=== PATIENT | male | born 1975 | race Caucasian/White ===

== ENCOUNTER 2020-04-18 12:37 | Emergency (ER) | payer BC, SELFPAY ==
--- NOTE | 2020-04-18 12:32 | ECG_ITS ---
APPROVED REPORT Exam: Resting ECG HR:61 bpm ECG Measurements Heart Rate 61 AXES WI 164 P 31 QRSd 84 QRS 29 QT 428 T 13 QTc 430 <Conclusion> Normal sinus rhythm Normal ECG Electronically signed by : Shivam Balderrama, 04/20/2020 06:44:34
[2020-04-18 12:39] VITALS: BP 118/81; PULSE 61; RESP 18; TEMP 36.6; O2SAT 96; BMI 32.5
--- NOTE | 2020-04-18 12:43 | XR_ITS ---
PROCEDURE: XR CHEST 2V CLINICAL HISTORY: chest pain, chest pain and shortness of air COMPARISON: CXR CHEST(2 VIEWS-NOT PORTABLE) from 11/26/2013 CXR CHEST(2 VIEWS-NOT PORTABLE) from 02/12/2014 XR CHEST 2V from 12/23/2019 FINDINGS: The cardiomediastinal silhouette and pulmonary vascularity are within normal limits. The lungs are clear without infiltrates, suspicious nodules, or pleural effusions. No acute bony abnormalities. IMPRESSION: No acute findings. Dictated by: Paul Whitaker MD 04/18/2020 14:16 Electronically signed by Paul Whitaker MD in [place] 04/18/2020 14:16
[2020-04-18 12:52] LABS: Basophils # 0.1 K/mm3 (0-0.2); Basophils % 0.9 % (0.1-2.0); Eosinophils # 0.3 K/mm3 (0.0-0.4); Eosinophils % 2.7 % (0.1-12.0); Hematocrit 47.8 % (42.0-52.0); Hemoglobin 16.8 g/dL (14.1-18.0); Lymphocytes # 2.7 K/mm3 (0.7-4.5); Lymphocytes % 28.8 % (10-50); Mean Corpuscular HGB Conc 35.2 g/dL (31.8-35.4); Mean Corpuscular Hemoglobin 30.4 pg (27.0-31.2); Mean Corpuscular Volume 86.5 fl (80-94); Mean Platelet Volume 7.8 fl (7.4-10.4); Monocytes # 0.4 K/mm3 (0.1-1.0); Monocytes % 4.7 % (1.7-9.3); Neutrophils # 5.8 K/mm3 (1.8-7.8); Neutrophils % 62.9 % (37.0-80.0); Platelet Count 297 K/mm3 (142-424); Red Blood Count 5.53 M/mm3 (4.60-6.20); Red Cell Distribution Width 13.5 % (11.5-17.5); White Blood Count 9.3 K/mm3 (4.8-10.8)
[2020-04-18 12:56] LABS: Chloride 100 mmol/L (98-107); Sodium 138 mmol/L (136-145)
[2020-04-18 12:59] LABS: Blood Urea Nitrogen 14 mg/dl (9-20); Calcium 9.8 mg/dl (8.4-10.2); Carbon Dioxide 29 mmol/L (22.0-30.0); Creatinine Clearance Estimated 148 mL/min (50-200); Estimated Glomerular Filt Rate 92 ml/min (>60); GFR (African American) 111 ML/MIN (>60); Glucose 130 mg/dl (74-100)
[2020-04-18 13:07] VITALS: BP 114/81; PULSE 64; RESP 20; O2SAT 99
[2020-04-18 13:12] LABS: Troponin I < 0.01 ng/ml (0.00-0.034)
[2020-04-18 13:30] VITALS: BP 120/82; PULSE 62; RESP 20; O2SAT 94
--- NOTE | 2020-04-18 13:31 | HMH.EDGENADL ---
ED Disposition Clinical Impression: Atypical chest pain Disposition: Home, Self-Care Condition on Discharge: Good Instructions: DI for Atypical Chest Pain Additional Instructions: You have been evaluated for chest pain. Please follow-up with cardiology, Dr. Salas and Jluis Soto tomorrow in clinic at 11:30 AM. Return to the emergency department if you have any new or worsening symptoms or pain tonight. Referrals: Sha Colon [Primary Care Provider] - Richi Salas MD [Staff Physician] - Time of Disposition: 16:02 - Critical Care Critical Care Time: No Attestation: On 04/18/20, the high probability of a clinically significant, sudden or life threatening deterioration of the following system(s) required my full and direct attention, intervention and personal management. The time I documented below is in addition to time spent performing reported procedures but includes the following listed in this critical care notation. Medical Decision Making - Medical Records Medical records reviewed: Yes: I reviewed the patient's medical records. - Abdelrahman Inquiry Pt receiving controlled substance: No Vital Signs: 04/18/20 12:39 04/18/20 13:07 04/18/20 13:30 Temperature 97.9 F Temperature Source Oral Pulse Rate [Radial] 61 64 62 Respiratory Rate 18 20 20 Blood Pressure [Right Arm] 118/81 114/81 120/82 Blood Pressure Mean [Right Arm] 93 92 94 Blood Pressure Source [Right Arm] Automatic Cuff Automatic Cuff Automatic Cuff Blood Pressure Position [Right Arm] Sitting Sitting Sitting 02 Sat by Pulse Oximetry 96 99 94 L Oxygen Delivery Method Room Air Room Air Room Air 04/18/20 14:00 04/18/20 14:30 Temperature Temperature Source Pulse Rate [Radial] 62 66 Respiratory Rate 17 20 Blood Pressure [Right Arm] 125/76 119/79 Blood Pressure Mean [Right Arm] 92 92 Blood Pressure Source [Right Arm] Automatic Cuff Blood Pressure Position [Right Arm] Sitting 02 Sat by Pulse Oximetry 92 L 96 Oxygen Delivery Method Room Air Room Air - Lab Data Lab Results 04/18/20 12:40: WBC 9.3, RBC 5.53, Hgb 16.8, Hct 47.8, MCV 86.5, MCH 30.4, MCHC 35.2, RDW 13.5, Plt Count 297, MPV 7.8, Neut % (Auto) 62.9, Lymph % (Auto) 28.8, Frontier % (Auto) 4.7, Eos % (Auto) 2.7, Baso % (Auto) 0.9, Neut # (Auto) 5.8, Lymph # (Auto) 2.7, Frontier # (Auto) 0.4, Eos # (Auto) 0.3, Baso # (Auto) 0.1 04/18/20 12:40: Sodium 138, Potassium 4.0, Chloride 100, Carbon Dioxide 29, Anion Gap 13.0, BUN 14, Creatinine 0.90, Estimated Creat Clear 148, Estimated GFR 92, Est GFR ( Amer) 111, Glucose 130 H, Calcium 9.8, Troponin I < 0.01 Result diagrams: 04/18/20 12:40 04/18/20 12:40 Orders (Tests/Meds): ED MEDICATIONS Discontinued Medications Generic Name Dose Route Start Last Admin Trade Name Freq PRN Reason Stop Dose Admin Aspirin 324 mg 04/18/20 12:52 04/18/20 12:52 Aspirin 81mg Chewable Tablet PO 04/18/20 12:53 324 mg ONCE ONE Administration ORDERS Category Date Time Status Troponin I Q3H Lab 04/18/20 15:45 Ordered Troponin I Q3H Lab 04/18/20 18:45 Ordered - ECG Data Tracing #1 Sinus rhythm with ventricular rate of 61 bpm. QRS 84, QTc 430. No significant ST segment elevation. No arrhythmia. - BARBARA Score for Non-Stemi Age of Patient: 40-49 years old Heart Rate: 50-69 bpm Systolic Blood Pressure: 100-119 mmHg Serum Creatinine: 0.40-0.79 mg/dl CHF Killip Class: I-No CHF Other Risk Factors: None Non-Stemi Risk Score: 75 Medical Decision Narrative: In summary this is a 44-year-old male presenting to the emergency department with episodes of chest pain. Patient is overall well-appearing on arrival. He is not having chest pain at this time. Vital signs are stable. Patient given 325 chewable aspirin. Differential diagnoses include acute coronary syndrome, myocarditis, costochondritis, pericarditis, pneumonia. Plan to obtain CBC, CMP, chest x-ray, EKG, troponin profile and reassess. Initial EKG
[2020-04-18 14:00] VITALS: BP 125/76; PULSE 62; RESP 17; O2SAT 92
[2020-04-18 14:30] VITALS: BP 119/79; PULSE 66; RESP 20; O2SAT 96
[2020-04-18 17:04] LABS: Troponin I < 0.01 ng/ml (0.00-0.034)
[2020-04-18 17:15] VITALS: BP 119/79; PULSE 66; RESP 20; TEMP 36.7; O2SAT 96
== END 2020-04-18 17:17 | disposition home or self-care (01) ==
PROVIDERS: Emergency Provider Emergency Medicine; PCP Orthopaedic Surgery
DX: R07.89 Other chest pain (principal); I10 Essential (primary) hypertension; E78.5 Hyperlipidemia, unspecified; Z88.0 Allergy status to penicillin; Z79.899 Other long term (current) drug therapy; F17.290 Nicotine dependence, other tobacco product, uncomplicated
CPT/HCPCS: 71046; 80048; 84484; 85025; 93005; 99284

== ENCOUNTER → 2020-04-28 06:03 | Outpatient (CLI) | payer BC, SELFPAY ==
--- NOTE | 2020-04-28 | CA_ITS ---
APPROVED REPORT Exam: Exercise Treadmill Technologist: Mayela Benton, Ht: 5 ft 9 in Wt: 225 lbs BSA: 2.17 m2 HR: 55 bpm BP: 131/85 mmHg Rhythm: SINUS BRADYCARDIA,RAD,ST-T ABNORMALITIES IN LEAD III AND aVF Medical History Medical History: HTN, Hyperlipidemia, Diabetic ??? Noninsulin Medications: Amlodipine,,,,, Omeprazole,,,,, Spiriva,,,,, Propranolol,,,,, Allopurinol,,,,, Escitalopram,,,,, Levocetrizine,,,,, Cardiac Risk Factors: HTN, Hyperlipidemia, Diabetes (non-insulin), FHX of CAD Stress Test Details Test: Jose Angel HR Resting HR: 57 bpm Max Heart Rate (APMHR): 176 bpm Max HR Achieved: 130 bpm Target HR (85% APMHR): 149 bpm % of APMHR: 73 Recovery HR: 88 bpm BP Resting BP: 131.0/85.0 mmHg Max BP: 150.0/82.0 mmHg Recovery BP: 130.0/70.0 mmHg ECG Resting ECG: SINUS BRADYCARDIA,RAD,ST-T ABNS IN LEADS III aVF Clinical Exercise duration: 10:16 min Highest Stage Achieved: Exercise capacity: 12.8 METs Stress ECG Conclusion EXERCISED 10:15 ON JOSE ANGEL PROTOCOL WITH MAX HEART RATE 130 BPM WHICH IS 74% OF PM FOR AGE. MAX BP 156/80. METS = 12.8. TEST STOPPED DUE TO SOA AND FATIGUE. MILD CHEST PRESSURE WITH EXERCISE. RARE PVC. ALLOWING FOR MOTION ARTIFACT AND BASELINE ABNORMALITIES IN LEADS III AND aVF,THE ST RESPONSE TO EXERCISE IS WITHIN NORMAL. NORMAL EKG'S TO HEART RATE ACHIEVED(74% OF PM). BLUNTED HEART RATE RESPONSE ON BETA QUINTEN. MILD CHEST PAIN WITH EXERCISE. MYOVIEW IMAGES REPORTED SEPARATELY. Test Summary RECOVERY 05:29 0.0 0.0 67 . 119/ 73 . . REST . . . . . . . Sitting REST 03:46 0.0 0.0 57 . 131/ 85 . . Stage 1 01:00 10.0 1.7 71 . . . . Stage 1 02:00 10.0 1.7 77 . . . . Stage 1 03:00 10.0 1.7 78 . 134/ 80 . . Stage 2 01:00 12.0 2.5 84 . . . . Stage 2 02:00 12.0 2.5 84 . . . . Stage 2 03:00 12.0 2.5 85 . 150/ 82 . . Stage 3 01:00 14.0 3.4 95 . . . . Stage 3 02:00 14.0 3.4 102 . . . . Stage 3 . . . . . . . Cardiolite injected Stage 3 03:00 14.0 3.4 104 . . . . Stage 4 01:00 16.0 4.2 121 . . . . Stage 4 01:16 16.0 4.2 127 . . . Stop exercise at 10:16 RECOVERY 01:00 0.0 0.0 90 . . . . RECOVERY 02:00 0.0 0.0 80 . 130/ 70 . . RECOVERY 03:00 0.0 0.0 72 . 137/ 78 . . RECOVERY 04:00 0.0 0.0 69 . 136/ 76 . . RECOVERY 05:00 0.0 0.0 66 . 136/ 76 . . RECOVERY 05:29 0.0 0.0 67 . 119/ 73 . . Electronically signed by : John Bowman, 04/28/2020 14:20:45
--- NOTE | 2020-04-28 06:06 | CA_ITS ---
APPROVED REPORT EXAM: Comprehensive 2D, Doppler, and color-flow Echocardiogram Final Inspector: Mellissa Perez RDCS Ht: 5 ft 9 in Wt: 225lbs BSA: 2.17 BP: 121/79 mmHg Indications: CP,ABN EKG,HTN,HLP,RODRIGUEZ 2D Dimensions LVOT 2.00 cm (M/F) 1.5-2.5 M-Mode Dimensions RVDd 2.88 cm (0.9-2.6) LVDd 5.13 cm (3.5-5.7) LVDs 3.90 cm (3.5-5.7) IVSd 0.85 cm (0.6-1.1) PWd 0.89 cm (0.6-1.1) EF (Teich) 47.50% FS 24.00% EDV (Teich) 125.50 mL ESV (Teich) 65.90 mL LV Diastology E/A Ratio 1.01 Mitral Valve MV A Velocity 60.00 (40-130 cm/s) Left Ventricle Left atrium is mildly enlarged, left ventricle is normal size, mild concentric left ventricular hypertrophy, visually estimated ejection fraction 55% with no regional wall motion abnormality, grade 1 diastolic dysfunction seen without tissue Doppler evidence of raise left atrial pressure. Right Ventricle Right atrium and right ventricular mildly enlarged with normal contractility. Aortic Valve Aortic valve is minimally thickened and fibrosed, there is no aortic stenosis or aortic insufficiency. Mitral Valve Mitral valve leaflets are minimally thickened, there is no mitral stenosis, there is mild mitral regurgitation. Tricuspid Valve Tricuspid valve is grossly normal, there is mild tricuspid regurgitation, tricuspid regurgitation jet velocity is inadequate for calculation of the right ventricular systolic pressure. Pulmonic Valve Pulmonic valve is poorly visualized. Great Vessels Aortic root is normal size. Pericardium Trivial pericardial effusion noted. Conclusion 1. Mild biatrial enlargement, normal left ventricular size, mild concentric left ventricular hypertrophy, visually estimated ejection fraction 55% with no regional wall motion abnormality, grade 1 diastolic dysfunction seen without tissue Doppler evidence of raise left atrial pressure. 2. Mildly enlarged right ventricle with normal contractility. 3. Mild mitral and tricuspid regurgitation. 4. Trivial pericardial effusion noted. Electronically signed by : John Bowman, 04/28/2020 15:21:48
--- NOTE | 2020-04-28 06:15 | NM_ITS ---
APPROVED REPORT Exam: Nuclear Stress Test Indication: chest pain..short of breath..fatigue Patient Location: Outpatient Stress Tech: Anhjannie Benton [place] Tech:VIRGIE Fernández RT(R)(N) Ht: 5 ft 9 in Wt: 225 lbs HR: 55 bpm BP: 131/85 mmHg BSA: 2.17 m2 BMI: 33.2 History: chest pain..short of breath..fatigue Procedure: Patient exercised on Jose Angel protocol 10.15 minutes and sec, resting heart rate 55 bpm, resting blood pressure 131/85 mmHg, with exercise maximum heart rate achived was 130 bpm which is 74 % of the maximum predicted heart rate and blood pressure was 150/80 mmHg. Patient denied any complaint of chest pain. Patient has good exercise capacity, achieved 12.8 METs of workload on treadmill, the blood pressure response to exercise was Adequate. Electrocardiogram Resting electrocardiogram showed sinus rhythm, with exercise there is less than 1.[address] segment depression noted from the baseline EKG. The EKG portion of the exercise Myoview is nondiagnostic as patient did not achieve the target heart rate. Cardiac Stress and Resting SPECT Images: Cardiac Stress and Resting SPECT images were obtained using technetium 99m Myoview 32.2 mCi stress and 10.71 mCi at rest. Gated SPECT for the analysis of segmental wall motion and calculation of the ejection fraction also done. Cardiac stress and resting SPECT images show uniform myocardial activity without segmental perfusion abnormality, computer derived ejection fraction is 61% with no regional wall motion abnormality, right ventricle is normal size and contractility. Conclusion: 1. The EKG portion of the exercise Myoview is nondiagnostic as patient did not achieve the target heart rate, patient has good exercise capacity achieved 12.8 mets of workload on treadmill, the blood pressure response to exercise was adequate. There was no exercise-induced chest discomfort. 2. No scintigraphic evidence of reversible ischemia seen at this level of exercise, computer derived ejection fraction is 61% with no regional wall motion abnormality, right ventricle is normal size and contractility. Electronically signed by : John Bowman, 04/28/2020 14:23:25
--- NOTE | 2020-04-28 09:47 | HMH.ITSHM ---
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 [] spiva xyzal breo allopurinol omprazole proprnolol amlodipine
== END ==
PROVIDERS: PCP Orthopaedic Surgery; Visit Provider Urology
DX: R06.00 Dyspnea, unspecified (principal); R07.9 Chest pain, unspecified; R94.31 Abnormal electrocardiogram [ECG] [EKG]; E78.5 Hyperlipidemia, unspecified; I10 Essential (primary) hypertension; R53.83 Other fatigue
CPT/HCPCS: 78452; 93017; 93306; A9502

== ENCOUNTER 2020-05-03 16:07 | Emergency (ER) | payer BC, SELFPAY ==
--- NOTE | 2020-05-03 16:12 | XR_ITS ---
PROCEDURE: XR CHEST 2V CLINICAL HISTORY: chest pain Left-sided chest pain COMPARISON: CR CXR CHEST(2 VIEWS-NOT PORTABLE) from 02/12/2014 CR XR CHEST 2V from 12/23/2019 CR XR CHEST 2V from 04/18/2020 FINDINGS: The cardiomediastinal silhouette and pulmonary vascularity are within normal limits. The lungs are clear without infiltrates, suspicious nodules, or pleural effusions. No acute bony abnormalities. IMPRESSION: No acute findings. Dictated by: Paul Whitaker MD 05/03/2020 16:54 Paul Whitaker MD in [place] 05/03/2020 16:54
--- NOTE | 2020-05-03 16:12 | ECG_ITS ---
APPROVED REPORT Exam: Resting ECG HR:63 bpm ECG Measurements Heart Rate 63 AXES WI 164 P 28 QRSd 90 QRS 8 QT 420 T 15 QTc 429 <Conclusion> Normal sinus rhythm Normal ECG Electronically signed by : Kyle Otero, 05/08/2020 13:08:57
--- NOTE | 2020-05-03 16:13 | HMH.EDCP ---
ED Disposition Clinical Impression: Chest pain Qualifiers: Chest pain type: unspecified Qualified Code(s): R07.9 - Chest pain, unspecified Disposition: Home, Self-Care Condition on Discharge: Good Instructions: DI for Atypical Chest Pain Referrals: Richi Salas MD [Staff Physician] - 05/04/20 - Critical Care Critical Care Time: No Attestation: On 05/03/20, the high probability of a clinically significant, sudden or life threatening deterioration of the following system(s) required my full and direct attention, intervention and personal management. The time I documented below is in addition to time spent performing reported procedures but includes the following listed in this critical care notation. Medical Decision Making - Medical Records Medical records reviewed: Yes: I reviewed the patient's medical records. - Abdelrahman Inquiry Pt receiving controlled substance: No Vital Signs: 05/03/20 16:15 Pulse Rate [Radial] 69 Respiratory Rate 16 Blood Pressure [Right Arm] 137/93 H Blood Pressure Mean [Right Arm] 107 Blood Pressure Source [Right Arm] Automatic Cuff Blood Pressure Position [Right Arm] Sitting 02 Sat by Pulse Oximetry 99 Oxygen Delivery Method Room Air - Lab Data Lab results reviewed: Yes: I reviewed the patient's lab results. Lab Results 05/03/20 16:10: WBC 8.1, RBC 5.59, Hgb 16.6, Hct 48.8, MCV 87.2, MCH 29.6, MCHC 33.9, RDW 13.5, Plt Count 300, MPV 7.8, Neut % (Auto) 59.0, Lymph % (Auto) 32.2, Harlan % (Auto) 5.3, Eos % (Auto) 2.3, Baso % (Auto) 1.2, Neut # (Auto) 4.8, Lymph # (Auto) 2.6, Harlan # (Auto) 0.4, Eos # (Auto) 0.2, Baso # (Auto) 0.1 05/03/20 16:10: Sodium 138, Potassium 4.0, Chloride 101, Carbon Dioxide 28, Anion Gap 13.0, BUN 10, Creatinine 0.90, Estimated Creat Clear 151, Estimated GFR 92, Est GFR ( Amer) 111, Glucose 142 H, Calcium 9.8, Total Bilirubin 1.1, AST 67 H, ALT 77, Alkaline Phosphatase 104, Troponin I < 0.01, Total Protein 7.3, Albumin 4.3, Globulin 3.0, Albumin/Globulin Ratio 1.4 Result diagrams: 05/03/20 16:10 05/03/20 16:10 Orders (Tests/Meds): ED MEDICATIONS Generic Name Dose Route Start Last Admin Trade Name Shady PRN Reason Stop Dose Admin Nitroglycerin 0.4 mg 05/03/20 16:12 Nitrostat 0.4mg Sl Tablet SL 05/04/20 16:12 Q5MINP PRN Chest Pain Discontinued Medications Generic Name Dose Route Start Last Admin Trade Name Fre[place]man PRN Reason Stop Dose Admin Aspirin 324 mg 05/03/20 16:12 Aspirin 81mg Chewable Tablet PO 05/03/20 16:13 ONCE ONE ORDERS Category Date Time Status XR chest 2V Stat Exams 05/03/20 16:12 Ordered Troponin I Q3H Lab 05/03/20 19:15 Ordered Troponin I Q3H Lab 05/03/20 22:15 Ordered ECG Request by /Ortiz Stat Y 05/03/20 16:12 Ordered - Radiology Data #1 Image(s): Chest Image Reviewed: Yes I reviewed the patient's radiology image Preliminary Findings: Normal/NAD - ECG Data Tracing #1 EKG shows a normal sinus rhythm with a rate of 63. No acute ST segment elevation or depression. No hyperacute T waves. QRS, QTc, IL within normal limits. EKG interpreted by me. Medical Decision Narrative: HEART score <3, low risk kathleen score and negative troponin yet again. He has now essentially been trending his troponins with intermittent chest pain since the beginning of the month and it remains negative, so I do not feel he needs a repeat at this time. Chest x-ray remains clear with no signs of pneumonia, pneumothorax, widened mediastinum that would suggest dissection or florid pulmonary edema. He has an EKG that shows no signs of acute ischemia and no significant interval abnormalities. He has follow-up with cardiology tomorrow. Discharged home. PERC negative. Chest Pain HPI - General Stated Complaint: Chest Pain Time Seen by Provider: 05/03/20 16:13 Mode of Arrival: Ambulatory Source of Information: Patient, Medical Record Limitations: No Limitations - History of Presen
[2020-05-03 16:15] VITALS: BP 137/93; PULSE 69; RESP 16; O2SAT 99; BMI 33.2
[2020-05-03 16:21] LABS: Basophils # 0.1 K/mm3 (0-0.2); Basophils % 1.2 % (0.1-2.0); Eosinophils # 0.2 K/mm3 (0.0-0.4); Eosinophils % 2.3 % (0.1-12.0); Hematocrit 48.8 % (42.0-52.0); Hemoglobin 16.6 g/dL (14.1-18.0); Lymphocytes # 2.6 K/mm3 (0.7-4.5); Lymphocytes % 32.2 % (10-50); Mean Corpuscular HGB Conc 33.9 g/dL (31.8-35.4); Mean Corpuscular Hemoglobin 29.6 pg (27.0-31.2); Mean Corpuscular Volume 87.2 fl (80-94); Mean Platelet Volume 7.8 fl (7.4-10.4); Monocytes # 0.4 K/mm3 (0.1-1.0); Monocytes % 5.3 % (1.7-9.3); Neutrophils # 4.8 K/mm3 (1.8-7.8); Platelet Count 300 K/mm3 (142-424); Red Blood Count 5.59 M/mm3 (4.60-6.20); Red Cell Distribution Width 13.5 % (11.5-17.5); White Blood Count 8.1 K/mm3 (4.8-10.8)
[2020-05-03 16:27] LABS: Alanine Aminotransferase 77 U/L (12-78); Albumin Level 4.3 g/dl (3.5-5.0); Albumin/Globulin Ratio 1.4 (1.1-1.8); Alkaline Phosphatase 104 U/L (38-126); Aspartate Amino Transferase 67 U/L (17-59); Bilirubin,Total 1.1 mg/dl (0.2-1.3); Blood Urea Nitrogen 10 mg/dl (9-20); Calcium 9.8 mg/dl (8.4-10.2); Carbon Dioxide 28 mmol/L (22.0-30.0); Chloride 101 mmol/L (98-107); Creatinine Clearance Estimated 151 mL/min (50-200); Estimated Glomerular Filt Rate 92 ml/min (>60); GFR (African American) 111 ML/MIN (>60); Glucose 142 mg/dl (74-100); Sodium 138 mmol/L (136-145); Total Protein,Serum 7.3 g/dl (6.3-8.2)
[2020-05-03 16:41] LABS: Troponin I < 0.01 ng/ml (0.00-0.034)
[2020-05-03 16:59] VITALS: BP 137/93; PULSE 69; RESP 16; TEMP 36.7; O2SAT 99
== END 2020-05-03 17:01 | disposition home or self-care (01) ==
PROVIDERS: Emergency Provider Emergency Medicine; PCP Orthopaedic Surgery
DX: R07.89 Other chest pain (principal); I10 Essential (primary) hypertension; E78.5 Hyperlipidemia, unspecified; K21.9 Gastro-esophageal reflux disease without esophagitis; J45.909 Unspecified asthma, uncomplicated; F17.290 Nicotine dependence, other tobacco product, uncomplicated; Z88.0 Allergy status to penicillin; Z79.899 Other long term (current) drug therapy
CPT/HCPCS: 71046; 80053; 84484; 85025; 93005; 99282; 99283

== ENCOUNTER 2020-05-12 08:52 | Day surgery (SDC) | payer BC, SELFPAY ==
[2020-05-12] VITALS (12 sets, daily range): BP systolic 108–141; BP diastolic 65–95; PULSE 42–70; RESP 16–18; TEMP 36.8; O2SAT 91–98; BMI 33.0
[2020-05-12 09:38] LABS: Basophils # 0.1 K/mm3 (0-0.2); Basophils % 1.4 % (0.1-2.0); Eosinophils # 0.3 K/mm3 (0.0-0.4); Eosinophils % 3.4 % (0.1-12.0); Hematocrit 46.6 % (42.0-52.0); Hemoglobin 16.1 g/dL (14.1-18.0); Lymphocytes # 2.6 K/mm3 (0.7-4.5); Lymphocytes % 33.5 % (10-50); Mean Corpuscular HGB Conc 34.6 g/dL (31.8-35.4); Mean Corpuscular Volume 86.8 fl (80-94); Mean Platelet Volume 7.8 fl (7.4-10.4); Monocytes # 0.5 K/mm3 (0.1-1.0); Monocytes % 6.9 % (1.7-9.3); Neutrophils # 4.3 K/mm3 (1.8-7.8); Neutrophils % 54.8 % (37.0-80.0); Platelet Count 278 K/mm3 (142-424); Red Blood Count 5.37 M/mm3 (4.60-6.20); Red Cell Distribution Width 13.7 % (11.5-17.5); White Blood Count 7.8 K/mm3 (4.8-10.8)
[2020-05-12 09:42] LABS: Anion Gap 11.8 mEq/L (5-15); Blood Urea Nitrogen 11 mg/dl (9-20); Calcium 9.4 mg/dl (8.4-10.2); Carbon Dioxide 29 mmol/L (22.0-30.0); Chloride 101 mmol/L (98-107); Creatinine Clearance Estimated 151 mL/min (50-200); Estimated Glomerular Filt Rate 92 ml/min (>60); GFR (African American) 111 ML/MIN (>60); Glucose 131 mg/dl (74-100); Potassium 3.8 mmoL/L (3.5-5.1); Sodium 138 mmol/L (136-145)
--- NOTE | 2020-05-12 10:00 | IR_ITS ---
APPROVED REPORT Patient Location: Outpatient PROCEDURES Left heart catheterization Left ventriculogram Selective coronary angiogram INDICATION Abnormal stress test, Angina pectoris Informed consent was obtained prior to the procedure. COMPLICATIONS NONE Estimated Blood Loss: LESS THAN 10 ML TECHNIQUE One percent lidocaine used to anesthetize the right anterior aspect of the wrist. The right radial artery was accessed via the Seldinger technique. A 6 Slovenian sheath was placed in the right radial artery. 2.5 mg of verapamil, 800 mcg of nitroglycerin, 1mg Lidocaine and 5000 U Heparin were given through the arterial sheath. The trap catheter was also used to perform left heart catheterization, left ventriculogram and selective coronary angiogram. At the end of the procedure the sheath was removed good hemostasis was achieved using Traclet band, patient was transferred to the postop holding area in stable condition. ANGIOGRAPHIC RESULTS The left main artery Normal The left anterior descending artery Normal The circumflex artery Normal The right coronary artery Dominant normal The STRANGE ventriculogram reveals Normal 65% The left ventricular end-diastolic pressure 10 mmHg IMPRESSION Normal coronary arteries Normal ejection fraction Normal left ventricular end-diastolic pressure PLAN 1. Medical management Electronically signed by : Richi Salas, 05/13/2020 09:23:24
[2020-05-12 10:03] LABS: Coronavirus 19 IgG Antibody Negative (Negative); Coronavirus 19 IgM Antibody Negative (Negative)
--- NOTE | 2020-05-16 08:45 | PC.NURSE ---
NOT ENOUGH DATA ON HOME SLEEP DEVICE THEREFORE NO CHARGE...
== END 2020-05-12 14:18 | disposition home or self-care (01) ==
PROVIDERS: PCP Family Medicine; Visit Provider Internal Medicine
DX: R94.31 Abnormal electrocardiogram [ECG] [EKG] (principal); E78.2 Mixed hyperlipidemia; G47.9 Sleep disorder, unspecified; I10 Essential (primary) hypertension; I20.9 Angina pectoris, unspecified; J45.21 Mild intermittent asthma with (acute) exacerbation; R06.00 Dyspnea, unspecified; R06.83 Snoring; R40.0 Somnolence
CPT/HCPCS: 80048; 85025; 86328; 93458; 99152; C1725; C1769; J1644; Q9967

== ENCOUNTER → 2020-07-06 17:00 | Outpatient (CLI) | payer BC, SELFPAY ==
[2020-07-06 18:35] LABS: Coronavirus 19 IgG Antibody Negative (Negative); Coronavirus 19 IgM Antibody Negative (Negative)
== END ==
PROVIDERS: Visit Provider Internal Medicine Gastroenterology
DX: Z01.818 Encounter for other preprocedural examination (principal); Z13.810 Encounter for screening for upper gastrointestinal disorder
CPT/HCPCS: 36415; 86328

== ENCOUNTER 2020-07-08 10:29 | Day surgery (SDC) | payer BC, SELFPAY ==
[2020-07-04 11:51] VITALS: BMI 33.2
[2020-07-08] VITALS (8 sets, daily range): BP systolic 105–121; BP diastolic 67–80; PULSE 62–86; RESP 15–18; TEMP 36.3; O2SAT 92–98
--- NOTE | 2020-07-08 12:24 | P.PN_ITS ---
[facility] Anesthesia Checklist - Patient Identification Patient Identification: Arm Band, Verbal (Name & ) - Structural Data Admitted From: Home Planned Operative Procedure/s: EGD Consent for Planned Operative Procedure(s) Verified: Yes Verified Documents: Surgical Consent, History and Physical - NPO Status Verified Time NPO: 00:00 - Chart Verification Results Verified: CBC, BMP - Additional verifications Anesthesia Reactions: No - Airway Assessment C-Spine Mobility Assessed: Yes TMJ Mobility Assessed: Yes Dentition: Good Dentition - Neurological Assessment Level of Consciousness: Awake, Alert, Appropriate, Follows Commands Hx Seizures: No Numbness or tingling in extremities: No - Anesthesia Plan Anesthesia Risk discussed: Yes Anesthesia Plan: Verified ASA Class: III Anesthesia Type: MAC [facility] History I have reviewed the patient's past medical history: Yes Medical History: Reports:: Anxiety, Asthma, Diabetes Mellitus Type 2, Gastroesophageal Reflux Disease(GERD), Hyperlipidemia, Hypertension, Kidney Stones, Renal Disease Denies:: Cancer, Diabetes Mellitus Type 1, Internal Pacemaker, MRSA, Seizures *Have you ever received a pneumonia vaccine?: No *Have you received a flu vaccine this season?: No Comment:: obesity Anesthesia experience/problems:: None Other Surgeries: Yes: Appendectomy, Cholecystectomy, Hernia Repair. No: Pacemaker Amputation: No Fractures: No - *Social History Last grade of school completed: Some college Smoking Status: Never smoker Alcohol Intake: current Alcohol Intake Frequency:: a few times a week Substance Use Type: denies use *Occupational Status:: employed Housing: house Household Members: spouse *Travel in the last 8 weeks: None - Psychiatric History Pschychiatric History:: Reports:: Anxiety Family Hx:: Coronary Artery Disease, Heart Attack, Cancer
--- NOTE | 2020-07-08 12:28 | P.PCN_ITS ---
[facility] Procedure Note Procedure Note:: Upper Endoscopy Procedure Report: Esophagogastroduodenoscopy with cold biopsies and TTS balloon dilation Endoscopost: Darien Velez II, MD Referring Physician: Julis Soto PA-C/Bob Tolentino MD Date of Procedure: July 08, 2020 Equipment: Olympus GIF 180 standard upper endoscope Sedation: MAC sedation Indications: Mr. Beal is a 44-year-old gentleman with longstanding reflux and dyspepsia. He reports epigastric abdominal discomfort, bloating, early satiety and intermittent nausea. He has been on omeprazole 40 mg by mouth daily but still has heartburn and reflux. He also reports moderate dysphagia with some globus sensation. He does state that he has had 3 or 4 prior endoscopies with dilation but his last endoscopy was more than 10 years ago. He does report some chronic diarrhea. He reports no belching. He has seen Dr. Richi Salas M.D. for chest pain and was felt to have noncardiac chest pain. He had a cardiac catheterization in April that was normal. He did have prior cholecystectomy in 2000. Procedure: Prior to the procedure, a history and physical exam was performed, and patient's medications and allergies were reviewed. The risks, benefits and alternatives of the sedation and procedure were discussed with the patient. All questions were answered and informed consent was obtained. The patient was brought to the procedure room. Patient identification and proposed procedure were verified by the physician and the nurse. The patient was placed in a left lateral decubitus position and the scope was passed under direct vision. Throughout the procedure, the patient's blood pressure, pulse, and oxygen saturations were monitored continuously. The upper GI endoscopy was accomplished without difficulty. The patient tolerated the procedure well. Findings: The scope was passed directly into the upper esophagus and advanced to the third portion of the duodenum. The post bulbar duodenum and duodenal bulb were normal with normal mucosa and conniventes. The scope was withdrawn through a normal duodenal bulb and pylorus into the stomach. There was moderate bile reflux with linear reactive gastropathy of the antrum and body of the stomach. The remainder of the antrum, body and fundus of the stomach were grossly normal. Upon retroflexion there was a very small 1 to 2 cm hiatal hernia. 2 biopsies were taken in the antrum and along the lesser curvature for histology to rule out gastritis and/or H pylori. The scope was then withdrawn into the esophagus. There was a serrated Z-line and evidence of nonerosive GERD. There was no evidence of Stevens's esophagus, reflux esophagitis or Schatzki's ring. A biopsy was taken at the GE junction. There were tertiary contractions and evidence of moderate esophageal dysmotility. The entire esophagus was dilated from 18 to 20 mm (54-60 Tanzanian) with a TTS hydrostatic balloon. The remainder of the esophageal mucosa was normal. Impression: 1. Nonerosive GERD with moderate esophageal dysmotility/esophageal dyskinesia and very small sliding hiatal hernia 2. Bile reflux with moderate linear reactive gastropathy Plan: I will follow-up the biopsies. I do feel that he would benefit from dietary measures and promotility therapy. We will discuss bulk fiber and additional treatment options which may include digestive enzyme. I would also consider colonoscopy based upon his symptoms.
== END 2020-07-08 13:38 | disposition home or self-care (01) ==
LOC: OUTP 10:31
PROVIDERS: PCP Family Medicine; Visit Provider Internal Medicine Gastroenterology
PROC: 0DJ08ZZ Inspection of Upper Intestinal Tract, Via Natural or Artificial Opening Endoscopic (ICD-10-PCS; CPT 43235; principal; 2020-07-08 12:00)
DX: K21.9 Gastro-esophageal reflux disease without esophagitis (principal); K22.4 Dyskinesia of esophagus; K31.9 Disease of stomach and duodenum, unspecified; K44.9 Diaphragmatic hernia without obstruction or gangrene; J45.909 Unspecified asthma, uncomplicated; E78.5 Hyperlipidemia, unspecified; I10 Essential (primary) hypertension; F41.9 Anxiety disorder, unspecified
CPT/HCPCS: 43239; 43249; C1726

== ENCOUNTER 2021-07-19 10:10 | Emergency (ER) | payer BC, SELFPAY ==
--- NOTE | 2021-07-19 10:10 | ECG_ITS ---
APPROVED REPORT Exam: Resting ECG HR:63 bpm ECG Measurements Heart Rate 63 AXES AL 170 P 34 QRSd 88 QRS 18 QT 402 T 23 QTc 411 Conclusion Normal sinus rhythm Normal ECG Electronically signed by : Shivam Balderrama MD 07/19/2021 21:34:19
--- NOTE | 2021-07-19 10:11 | HMH.EDGENADL ---
ED Disposition Clinical Impression: Right sided abdominal pain, Atypical chest pain Disposition: Home Health Service Condition on Discharge: Good Instructions: DI for Atypical Chest Pain Additional Instructions: Additional instructions for CHEST PAIN: See your physician as soon as possible for further evaluation. Return immediately if worsening chest pain, vomiting, shortness of breath, fever, coughing of blood. Additional instructions for ABDOMINAL PAIN: See your physician as soon as possible for further evaluation. Return immediately if worsening abdominal pain, vomiting, shortness of breath, fever, vomiting of blood or abdominal distention. Referrals: Provider,Referral, [Primary Care Provider] - - Critical Care Critical Care Time: No Attestation: On , the high probability of a clinically significant, sudden or life threatening deterioration of the following system(s) required my full and direct attention, intervention and personal management. The time I documented below is in addition to time spent performing reported procedures but includes the following listed in this critical care notation. Medical Decision Making - Medical Records Medical records reviewed: Yes: I reviewed the patient's medical records. MR Comment: Reviewed prior heart cath, Myoview, echo. See results below. - Abdelrahman Inquiry Pt receiving controlled substance: No Vital Signs: 07/19/21 10:24 07/19/21 11:08 07/19/21 11:53 Temperature 98.3 F Temperature Source Oral Pulse Rate 66 59 L Pulse Rate [Right Radial] 70 Respiratory Rate 17 18 18 Blood Pressure 127/88 121/80 Blood Pressure [Right Arm] 168/110 H Blood Pressure Mean 101 93 Blood Pressure Mean [Right Arm] 129 Blood Pressure Source [Right Arm] Automatic Cuff Blood Pressure Position [Right Arm] Supine 02 Sat by Pulse Oximetry 97 97 96 Oxygen Delivery Method Room Air Room Air Room Air - Lab Data Lab Results 07/19/21 10:20: WBC 6.7, RBC 5.57, Hgb 17.3, Hct 50.3, MCV 90.2, MCH 31.1, MCHC 34.5, RDW 12.1, Plt Count 249, MPV 8.0, Neut % (Auto) 50.0, Lymph % (Auto) 40.7, [place] % (Auto) 5.6, Eos % (Auto) 2.6, Baso % (Auto) 1.2, Neut # (Auto) 3.4, Lymph # (Auto) 2.7, [place] # (Auto) 0.4, Eos # (Auto) 0.2, Baso # (Auto) 0.1 07/19/21 10:20: Sodium 137, Potassium 3.8, Chloride 101, Carbon Dioxide 28, Anion Gap 11.8, BUN 9, Creatinine 0.70, Estimated Creat Clear 180, Estimated GFR 122, Est GFR ( Amer) 148, Glucose 197 H, Calcium 9.0, Amylase 70, Lipase 49 07/19/21 10:20: Troponin I < 0.01 07/19/21 12:04: Urine Color Yellow, Urine Appearance Clear, Urine pH 5.5, Ur Specific [place] 1.015, Urine Protein Negative, Urine Glucose (UA) Negative, Urine Ketones Negative, Urine Blood Negative, Urine Nitrate Negative, Urine Bilirubin Negative, Urine Urobilinogen 0.2, Ur Leukocyte Esterase Negative 07/19/21 12:12: Stool Occult Blood Negative Result diagrams: 07/19/21 10:20 07/19/21 10:20 Orders (Tests/Meds): ED MEDICATIONS Discontinued Medications Generic Name Dose Route Start Last Admin Trade Name Shady PRN Reason Stop Dose Admin Aspirin 324 mg 07/19/21 10:39 07/19/21 10:46 Aspirin 81mg Chewable Tablet PO 07/19/21 10:40 324 mg ONCE ONE Administration Iopamidol 75 ml 07/19/21 11:33 07/19/21 11:34 Iopamidol-370 (76%);100ml Bottle IV 07/19/21 11:34 75 ml ONCE ONE Administration Sodium Chloride 10 ml 07/19/21 11:33 07/19/21 11:34 Sodium Chloride 0.9% 10ml Syr (Rad Only) IV 07/19/21 11:34 10 ml ONCE ONE Administration ORDERS Category Date Time Status Troponin I Q3H Lab 07/19/21 14:00 Ordered Troponin I Q3H Lab 07/19/21 17:00 Ordered Urinalysis and Microscopic Stat Lab 07/19/21 12:04 Results PROCEDURES Left heart catheterization Left ventriculogram Selective coronary angiogram INDICATION Abnormal stress test, Angina pectoris Informed consent was obtained prior to the procedure. COMPLICATIO
[2021-07-19 10:24] VITALS: BP 168/110; PULSE 70; RESP 17; TEMP 36.8; O2SAT 97; BMI 30.1
--- NOTE | 2021-07-19 10:40 | XR_ITS ---
PROCEDURE: XR CHEST 2V CLINICAL HISTORY: chest pain COMPARISON: CR XR CHEST 2V from 12/23/2019 CR XR CHEST 2V from 04/18/2020 CR XR CHEST 2V from 05/03/2020 FINDINGS: The cardiomediastinal silhouette and pulmonary vascularity are within normal limits. The lungs are clear without infiltrates, suspicious nodules, or pleural effusions. No acute bony abnormalities. IMPRESSION: No acute findings. Dictated by: Paul Whitaker MD 07/19/2021 11:42 Paul Whitaker MD in [place] 07/19/2021 11:42
[2021-07-19 10:46] LABS: Basophils # 0.1 K/mm3 (0-0.2); Basophils % 1.2 % (0.1-2.0); Eosinophils # 0.2 K/mm3 (0.0-0.4); Eosinophils % 2.6 % (0.1-12.0); Hematocrit 50.3 % (42.0-52.0); Hemoglobin 17.3 g/dL (14.1-18.0); Lymphocytes # 2.7 K/mm3 (0.7-4.5); Lymphocytes % 40.7 % (10-50); Mean Corpuscular HGB Conc 34.5 g/dL (31.8-35.4); Mean Corpuscular Hemoglobin 31.1 pg (27.0-31.2); Mean Corpuscular Volume 90.2 fl (80-94); Monocytes # 0.4 K/mm3 (0.1-1.0); Monocytes % 5.6 % (1.7-9.3); Neutrophils # 3.4 K/mm3 (1.8-7.8); Platelet Count 249 K/mm3 (142-424); Red Blood Count 5.57 M/mm3 (4.60-6.20); Red Cell Distribution Width 12.1 % (11.5-17.5); White Blood Count 6.7 K/mm3 (4.8-10.8)
--- NOTE | 2021-07-19 10:47 | PC.NURSE ---
Called at 10:33 and spoke with dean from [facility] for chest xray.
[2021-07-19 10:48] LABS: Chloride 101 mmol/L (98-107); Potassium 3.8 mmoL/L (3.5-5.1); Sodium 137 mmol/L (136-145)
--- NOTE | 2021-07-19 10:48 | CT_ITS ---
PROCEDURE: CT ABDOMEN PELVIS W CON CLINICAL INDICATION: right sided abdominal pain Right quadrant COMPARISON: CT ABDPELWO CT abdomen pelvis wo con from 12/25/2018 TECHNIQUE: IV Contrast: 75ML Isovue 370 Oral Contrast None Axial images obtained with sagittal and coronal reformats. All CT scans at the facility use one or more dose reduction, viz: automated exposure control, ma/kV adjustment per patient size (including targeted exams where dose is matched to indication, i.e. head), or iterative reconstruction technique. FINDINGS: LOWER THORAX: No acute finding ABDOMEN & PELVIS: Fatty liver. No focal liver lesion apparent. Prior cholecystectomy. No biliary dilatation. The spleen, pancreas, and adrenal glands have an unremarkable appearance. No renal or ureteral calculi. No hydronephrosis. No intestinal obstruction or free air. Prior appendectomy. There are few scattered small mesenteric nodes. Scattered colonic diverticula are present. No evidence of diverticulitis. There is mild thickening of the rectum. There is no stranding of the perirectal fat. Coarse calcifications are present within the prostate. No pelvic mass or abnormal fluid collection. Degenerative disc disease L5-S1 with prominent disc osteophyte complex in the central and left paracentral region. Small central disc protrusion L4-5. IMPRESSION: 1. Mild rectal thickening. This could be due to nondistention. Cannot exclude the possibility of proctitis. Neoplasm not completely excluded. Nonemergent proctoscopy may provide further evaluation. 2. Colonic diverticulosis. No evidence of diverticulitis. 3. Fatty liver Dictated by: Paul Whitaker MD 07/19/2021 11:51 Paul Whitaker MD in [facility] 07/19/2021 11:51
[2021-07-19 10:50] LABS: Amylase 70 U/L (30-110)
[2021-07-19 10:51] LABS: Anion Gap 11.8 mEq/L (5-15); Blood Urea Nitrogen 9 mg/dl (9-20); Carbon Dioxide 28 mmol/L (22.0-30.0); Creatinine Clearance Estimated 180 mL/min (50-200); Estimated Glomerular Filt Rate 122 ml/min (>60); GFR (African American) 148 ML/MIN (>60); Glucose 197 mg/dl (74-100); Lipase 49 U/L (23-300)
--- NOTE | 2021-07-19 10:56 | PC.NURSE ---
Pt is in bathroom trying to give stool sample.
--- NOTE | 2021-07-19 11:06 | PC.NURSE ---
notified rad of CT order, spoke with Anson
[2021-07-19 11:08] VITALS: BP 127/88; PULSE 66; RESP 18; O2SAT 97
[2021-07-19 11:22] LABS: Troponin I < 0.01 ng/ml (0.00-0.034)
--- NOTE | 2021-07-19 11:23 | PC.NURSE ---
pt to rad
[2021-07-19 11:53] VITALS: BP 121/80; PULSE 59; RESP 18; O2SAT 96
[2021-07-19 12:06] LABS: Microscopic, Urine URINE MICROSCOPIC (MICROSCOPIC)
[2021-07-19 12:11] LABS: Appearance,Urine CLEAR (Clear); Bilirubin,Urine Negative (Negative); Blood, Urine Negative (Negative); Color,Urine YELLOW (Yellow); Glucose,Urine (UA) Negative (Negative); Ketones,Urine Negative (Negative); Leukocyte Esterase,Urine Negative (Negative); Nitrate,Urine Negative (Negative); PH,Urine 5.5 (5.0-8.5); Protein,Urine Negative (Negative); Specific Gravity, Urine 1.015 (1.005-1.030); Urobilinogen,Urine 0.2 EU/dl (0.2)
[2021-07-19 12:19] LABS: Occult Blood,Stool Negative (Negative)
[2021-07-19 12:27] LABS: Bacteria,Urine Trace /lpf; Squamous Epithelial Cell,Urine Occasional #/hpf (0-5)
--- NOTE | 2021-07-19 12:31 | PC.NURSE ---
Pt is resting quietly supine position, and doesn't need anything. Will continue to monitor.
[2021-07-19 12:50] VITALS: BP 128/84; PULSE 60; RESP 17; TEMP 36.7; O2SAT 93
== END 2021-07-19 12:50 | disposition home health service (06) ==
PROVIDERS: Emergency Provider Emergency Medicine
DX: R10.31 Right lower quadrant pain (principal); R07.89 Other chest pain; F41.9 Anxiety disorder, unspecified; Z87.442 Personal history of urinary calculi; K21.9 Gastro-esophageal reflux disease without esophagitis; I10 Essential (primary) hypertension; Z88.0 Allergy status to penicillin
CPT/HCPCS: 71046; 74177; 80048; 81001; 82150; 82272; 83690; 84484; 85025; 93005; 99284; G0328; Q9967

== ENCOUNTER → 2021-08-29 15:15 | Outpatient (POV) | payer BC, SELFPAY | PROVIDERS: Visit Provider Dermatology | DX: Z00.00 Encounter for general adult medical examination without abnormal findings (principal) ==

== ENCOUNTER 2023-11-24 10:35 | Emergency (ER) | payer BC, SELFPAY ==
[2023-11-24] VITALS (10 sets, daily range): BP systolic 119–153; BP diastolic 79–98; PULSE 90–104; RESP 13–22; TEMP 36.6–36.9; O2SAT 92–98; BMI 31.5
--- NOTE | 2023-11-24 10:26 | ECG_ITS ---
APPROVED REPORT Exam: Resting ECG HR:98 bpm ECG Measurements Heart Rate 98 AXES MS 173 P 49 QRSd 96 QRS 110 QT 344 T 18 QTc 399 Conclusion SINUS RHYTHM LEFT POSTERIOR FASCICULAR BLOCK [QRS AXIS > 109, INFERIOR Q] Electronically signed by : BARRY NORMAN, 11/25/2023 07:32:22
--- NOTE | 2023-11-24 10:49 | XR_ITS ---
PROCEDURE INFORMATION: Exam: XR Chest Exam date and time: 11/24/2023 11:00 AM Age: 48 years old Clinical indication: Pain; Angina pectoris; Additional info: Chest pain TECHNIQUE: Imaging protocol: Radiologic exam of the chest. Views: 1 view. COMPARISON: CT ANGIO CHEST 11/24/2023 10:22 AM FINDINGS: Lungs: There is poor ventilation of the lungs, with perihilar vascular crowding and a diffuse increase in pulmonary parenchymal density. No evidence of pneumonia or interstitial edema. Pleural spaces: Unremarkable. No pleural effusion. No pneumothorax. Heart/Mediastinum: Unremarkable. No cardiomegaly. Bones/joints: Unremarkable. IMPRESSION: No evidence of pneumonia or interstitial edema.
--- NOTE | 2023-11-24 11:00 | PC.NURSE ---
Dr. Onofre at [facility] for pt eval
--- NOTE | 2023-11-24 11:03 | CT_ITS ---
PROCEDURE INFORMATION: Exam: CTA Chest With Contrast Exam date and time: 11/24/2023 10:22 AM Age: 48 years old Clinical indication: Pain; Angina pectoris; Additional info: Cp to back, tachy, hiatal hernia also TECHNIQUE: Imaging protocol: Computed tomographic angiography of the chest with contrast. Exam focused on the arteries. 3D rendering (Not supervised by radiologist): MIP and/or 3D reconstructed images were created by the technologist. Radiation optimization: All CT scans at this facility use at least one of these dose optimization techniques: automated exposure control; mA and/or kV adjustment per patient size (includes targeted exams where dose is matched to clinical indication); or iterative reconstruction. Contrast material: ISOVUE 370; Contrast volume: 100 ml; Contrast route: INTRAVENOUS (IV); COMPARISON: CR XR CHEST 2V 07/19/2021 11:15 AM FINDINGS: Pulmonary arteries: No evidence of filling defects to suggest pulmonary emboli. Aorta: Unremarkable. No aortic aneurysm. No aortic dissection. Lungs: No evidence of airspace opacity or interlobular septal thickening. No suspicious pulmonary lesions. Pleural spaces: No pneumothorax. No pleural effusion. Heart: No cardiomegaly or pericardial effusion. Heart RV/LV ratio: The RV/LV ratio is less than 1. Coronary arteries: No significant coronary artery calcifications. Mediastinal space: There is mucosal hyperenhancement and submucosal edema along the esophagus. The stomach is incompletely evaluated but mildly distended. Lymph nodes: No lymphadenopathy. Bones/joints: No acute osseous abnormality. Soft tissues: Unremarkable. IMPRESSION: 1. Fluid distended esophagus can be seen in the context of esophageal dysmotility/esophagitis. 2. No evidence of filling defects to suggest pulmonary emboli.
[2023-11-24 11:04] LABS: Alanine Aminotransferase 36 U/L (12-78); Albumin Level 4.8 g/dl (3.5-5.0); Albumin/Globulin Ratio 1.5 (1.1-1.8); Alkaline Phosphatase 96 U/L (38-126); Anion Gap 18.2 mEq/L (5-15); Aspartate Amino Transferase 40 U/L (17-59); Bilirubin,Total 0.9 mg/dl (0.2-1.3); Blood Urea Nitrogen 7 mg/dl (9-20); Calcium 9.7 mg/dl (8.4-10.2); Carbon Dioxide 21 mmol/L (22.0-30.0); Chloride 102 mmol/L (98-107); Creatinine Clearance Estimated 159 mL/min (50-200); Estimated Glomerular Filt Rate 103 ml/min (>60); GFR (African American) 125 ML/MIN (>60); Globulin 3.1 g/dL (1.3-3.2); Glucose 170 mg/dl (74-100); Potassium 4.2 mmoL/L (3.5-5.1); Sodium 137 mmol/L (136-145); Total Protein,Serum 7.9 g/dl (6.3-8.2)
--- NOTE | 2023-11-24 11:04 | PC.NURSE ---
RAD at [facility]
--- NOTE | 2023-11-24 11:05 | ED_ITS ---
Discharge Plan Disposition Patient Disposition: Home, Self-Care Chief Complaint: Chest Pain Prescriptions Prescriptions: No Action duloxetine 30 mg capsule,delayed release(DR/EC) 30 mg PO fluticasone furoate-vilanterol [Breo Ellipta] 200-25 mcg/dose blister with device 1 inh IH omeprazole 40 MG capsule,delayed release(DR/EC) 40 mg PO DAILY propranolol 10 MG tablet 10 mg PO BID amlodipine 10 MG tablet 10 mg PO DAILY levocetirizine 5 MG tablet 5 mg PO DAILY Referrals Follow up/Referrals: Bob Palumbo [Primary Care Provider] - See instructions Activity Restrictions/Add. Instructions Additional Instructions/Restrictions: At this time it was felt you are safe to be discharged home. If new or worsening symptoms please do not hesitate to return the emergency department. Please follow-up with Dr. Salas as discussed. Clinical Impressions Clinical Impression: Chest pain, GERD (gastroesophageal reflux disease) Discharge ED Provider: Oscar Onofre General Chief Complaint: Chest Pain Stated Complaint: chest pain Time Seen by Provider: 11/24/23 10:35 Mode of Arrival: Ambulatory Source of Information: Patient and Spouse Limitations: No Limitations Description of Symptoms (Recalled from ER Triage Doc. by RN): pt states he awoke with chest pain at approximately 0500. pt states the chest pain has increasingly worsened. pt states he has taken antacids and 324 aspirin. pt states his pain is L sided, sharp and 8/10. pt reports this pain is similar to the pain he had with a hiatal hernia. History of Present Illness HPI narrative: Patient is a 48-year-old male with past medical history of angina, hypertension, hyperlipidemia, hiatal hernia who presents emergency department for evaluation of chest pain. Onset was acute, occurring at 5 AM this morning, has had some nonbloody nonbilious vomiting. It is left-sided and goes through to his back. Due to persistent symptoms he presents here for continued evaluation. Patient took 324 of aspirin prior to arrival. Related Data Home Medications Medication Instructions Recorded Confirmed amlodipine 10 mg tablet 10 mg PO DAILY Hypertension 04/18/20 07/04/22 levocetirizine 5 mg tablet 5 mg PO DAILY allergies 04/18/20 07/04/22 omeprazole 40 mg capsule,delayed 40 mg PO DAILY GERD 04/18/20 07/04/22 release propranolol 10 mg tablet 10 mg PO BID Hypertension 04/18/20 07/04/22 duloxetine 30 mg capsule,delayed 30 mg PO 05/08/22 07/04/22 release fluticasone furoate 200 1 inh inhalation 05/08/22 07/04/22 mcg-vilanterol 25 mcg/dose inhalation powder (Breo Ellipta) Allergies Allergy/AdvReac Type Severity Reaction Status Date / Time Penicillins [PENICILLINS] Allergy Unknown Verified 11/24/23 10:51 rosuvastatin [From Crestor] AdvReac Intermediate Verified 11/24/23 10:51 PFSH [facility] Disclaimer: The information contained in this section may have been updated after the patient was seen, as this information can be updated by other users. Medical History Daytime somnolence HTN (hypertension) Restless sleeper Snoring Typical angina Surgical History History of arthroscopic surgery of elbow History of hernia surgery History of neck surgery Hx of tonsillectomy Social History Smoking Status: Never smoker alcohol intake: current substance use type: denies use current occupational status: employed Travel in the last 8 weeks: None household members: spouse housing: house current occupation: Conservation Scientist current occupational exposures/hazards: No caffeine: Yes ROS Obtained: Yes Systems reviewed as appropriate & no additional complaints except as documented Physical Exam General General appearance: alert and in no apparent distress Head Head exam: atraumatic and normocephalic Eye Eye exam: Present PERRL ENT ENT exam: Present mucous membranes moist Neck Neck exam: Present normal inspection Chest Chest inspection: Present normal inspection and symmetric chest wall rise Respiratory Respiratory exam: Present normal lung sounds bilaterally; Absent respiratory distress Cardiovascular Cardiovascular exam: Present normal rhythm, tachycardia and other (No pitting edema BLE) Abdominal Exam Abdominal exam: Present soft; Absent tenderness Extremities Exam Extremities exam: Present normal inspection Neurological Exam Neurological exam: Present alert Psychiatric Psychiatric exam: Present normal affect Skin Skin exam: Present warm and dry HEART Score HEART Score HEART Score assessment performed?: Yes History (anamnesis): Highly suspicious ECG: Normal Age: 45-65 years Risk factors: 3 or more risk factors Troponin: </= normal limit HEART Score: 5 Critical Care Critical Care Time Critical Care Time: No Medical Decision Making Abdelrahman Inquiry Pt receiving controlled substance: No Vital Signs Vital Signs: 11/24/23 10:42 11/24/23 10:47 11/24/23 11:00 Temperature 98.5 F Temperature Source Oral Pulse Rate 98 H 102 H Pulse Rate [Left] 104 H Respiratory Rate 13 22 Blood Pressure 129/98 H Blood Pressure [Right Arm] 153/97 H Blood Pressure Mean 111 Blood Pressure Mean [Right Arm] 115 Blood Pressure Source [Right Arm] Automatic Cuff Blood Pressure Position [Right Arm] Sitting 02 Sat by Pulse Oximetry 98 98 Oxygen Delivery Method Room Air 11/24/23 11:30 11/24/23 12:00 11/24/23 12:30 Temperature Temperature Source Pulse Rate 102 H 98 H 90 Pulse Rate [Left] Respiratory Rate 18 20 21 Blood Pressure 129/79 119/79 126/84 Blood Pressure [Right Arm] Blood Pressure Mean 95 90 Blood Pressure Mean [Right Arm] Blood Pressure Source [Right Arm] Blood Pressure Position [Right Arm] 02 Sat by Pulse Oximetry 96 94 L 92 L Oxygen Delivery Method 11/24/23 13:00 11/24/23 13:30 11/24/23 14:10 Temperature Temperature Source Pulse Rate 94 H 91 H 97 H Pulse Rate [Left] Respiratory Rate 20 20 20 Blood Pressure 124/86 127/84 129/88 Blood Pressure [Right Arm] Blood Pressure Mean 94 101 Blood Pressure Mean [Right Arm] Blood Pressure Source [Right Arm] Blood Pressure Position [Right Arm] 02 Sat by Pulse Oximetry 96 94 L 94 L Oxygen Delivery Method Room Air Lab Data Labs: Lab Results 11/24/23 10:36: WBC 10.1, RBC 6.26 H, Hgb 18.3 H, Hct 55.6 H, MCV 88.8, MCH 29.3, MCHC 33.0, RDW 13.6, Plt Count 277, MPV 8.1, Neut % (Auto) 75.2, Lymph % (Auto) 18.4, [place] % (Auto) 4.8, Eos % (Auto) 0.7, Baso % (Auto) 0.8, Neut # (Auto) 7.6, Lymph # (Auto) 1.9, [place] # (Auto) 0.5, Eos # (Auto) 0.1, Baso # (Auto) 0.1, Sodium 137, Potassium 4.2, Chloride 102, Carbon Dioxide 21 L, Anion Gap 18.2 H, BUN 7 L, Creatinine 0.80, Estimated Creat Clear 159, Estimated GFR 103, Est GFR ( Amer) 125, Glucose 170 H, Calcium 9.7, Total Bilirubin 0.9, AST 40, ALT 36, Alkaline Phosphatase 96, Troponin I < 0.01, NT-Pro-B Natriuret Pep < 20.0, Total Protein 7.9, Albumin 4.8, Globulin 3.1, Albumin/Globulin Ratio 1.5 11/24/23 11:25: SARS-CoV-2 (PCR) Not detected, Influenza A Untype (PCR) Not detected, Influenza Type B (PCR) Not detected 11/24/23 13:45: Troponin I < 0.01 11/24/23 10:36 11/24/23 10:36 Response Orders (Tests/Meds): ED MEDICATIONS Generic Name Dose Route Start Last Admin Trade Name Freq PRN Reason Stop Dose Admin Nitroglycerin 0.4 mg 11/24/23 11:03 Nitroglycerin 0.4mg Sl Tablet SL 12/24/23 11:02 [id number] PRN Chest Pain Discontinued Medications Generic Name Dose Route Start Last Admin Trade Name Freq PRN Reason Stop Dose Admin Belladonna Alkaloids 60 ml 11/24/23 11:03 11/24/23 11:08 Belladonna Alkaloids 60 Ml Ml PO 11/24/23 11:04 60 ml ONCE ONE Administration Lactated Ringer's 1,000 mls @ 999 mls/hr 11/24/23 11:04 11/24/23 11:09 Lactated Ringer's 1000 Ml Bag IV 11/24/23 12:04 999 mls/hr .Q1H1M ONE Administration Iopamidol 100 ml 11/24/23 11:30 11/24/23 11:31 Iopamidol-370 (76%);100ml Bottle IV 11/24/23 11:31 100 ml ONCE ONE Administration Morphine Sulfate 4 mg 11/24/23 11:03 11/24/23 11:09 Morphine 4mg/Ml Syringe IV 11/24/23 11:04 4 mg ONCE ONE Administration Ondansetron HCl 4 mg 11/24/23 11:20 11/24/23 11:21 Ondansetron 4mg/2ml Vial IV 11/24/23 11:21 4 mg ONCE ONE Administration Sodium Chloride 10 ml 11/24/23 11:30 11/24/23 11:31 Sodium Chloride 0.9% 10ml Syr (Rad Only) IV 11/24/23 11:31 10 ml ONCE ONE Administration Sodium Chloride 40 ml 11/24/23 11:30 11/24/23 11:31 0.9 % Sodium Chloride 50 Ml Vial IV 11/24/23 11:31 40 ml ONCE ONE Administration ORDERS Category Date Time Status CT angio chest - dissection Stat Cat Scan 11/24/23 11:03 Completed XR chest portable Stat Exams 11/24/23 10:49 Completed Brain Natriuretic Peptide Stat Lab 11/24/23 10:36 Completed Complete Blood Count Auto Diff Stat Lab 11/24/23 10:36 Completed Comprehensive Metabolic Panel Stat Lab 11/24/23 10:36 Completed Rapid PCR Covid and Flu A/B Stat Lab 11/24/23 11:25 Completed Trop I [Troponin I] Stat Lab 11/24/23 10:36 Completed Troponin I Q3H Lab 11/24/23 13:45 Completed Troponin I Q3H Lab 11/24/23 17:00 Ordered ECG Data Tracing #1: ECG Narrative: Independently interpreted by me, rate is 98, rhythm is regular, no ST elevation in anatomical contiguous leads, sinus rhythm, QTc 399. MDM Narrative Medical Decision Narrative: In summary patient is a 48-year-old male with past medical history described above who presents emergency department for evaluation of chest pain. Patient is hemodynamically stable nontoxic-appearing upon arrival, tachycardic. Differential diagnosis includes aortic dissection, pulmonary embolism, ACS, hiatal hernia complication, among others. Workup will be conducted with hematologic labs, chest x-ray, EKG, serial troponins, CTA chest, viral swab. Initial interventions include crystalloid bolus, GI cocktail, morphine, nitroglycerin. Workup reviewed by me, hematologic labs are nonactionable, serial troponins are undetectably low. Viral swab negative. CTA chest shows fluid distended esophagus which could be reflective of esophageal dysmotility, no evidence of aortic dissection or pulmonary embolism. Upon repeat evaluation patient was resting comfortably in bed, no significant persistent symptoms. Given this patient is appropriate for outpatient management at this time we will follow-up with his PCP for his acid reflux and will be referred to Dr. Salas on an outpatient basis.
[2023-11-24] MEDS: BELLADONNA ALKALOIDS 60 ML ML PO (11:08)
[2023-11-24] MEDS: MORPHINE 4MG/ML SYRINGE 4 MG IV (11:09)
[2023-11-24] MEDS: LACTATED RINGERS 1000ML 1,000 ML 999 ML IV (11:09)
[2023-11-24 11:13] LABS: NT Pro Brain Natriuretic Pep. < 20.0 pg/mL (0-125)
[2023-11-24 11:17] LABS: Troponin I < 0.01 ng/ml (0.00-0.034)
[2023-11-24 11:21] LABS: Basophils # 0.1 K/mm3 (0-0.2); Basophils % 0.8 % (0.1-2.0); Eosinophils # 0.1 K/mm3 (0.0-0.4); Eosinophils % 0.7 % (0.1-12.0); Hematocrit 55.6 % (42.0-52.0); Lymphocytes # 1.9 K/mm3 (0.7-4.5); Lymphocytes % 18.4 % (10-50); Mean Corpuscular Hemoglobin 29.3 pg (27.0-31.2); Mean Corpuscular Volume 88.8 fl (80-94); Mean Platelet Volume 8.1 fl (7.4-10.4); Monocytes # 0.5 K/mm3 (0.1-1.0); Monocytes % 4.8 % (1.7-9.3); Neutrophils # 7.6 K/mm3 (1.8-7.8); Neutrophils % 75.2 % (37.0-80.0); Platelet Count 277 K/mm3 (142-424); Red Blood Count 6.26 M/mm3 (4.60-6.20); Red Cell Distribution Width 13.6 % (11.5-17.5); White Blood Count 10.1 K/mm3 (4.8-10.8)
[2023-11-24] MEDS: ONDANSETRON 4MG/2ML VIAL 4 MG IV (11:21)
--- NOTE | 2023-11-24 11:21 | PC.NURSE ---
pt gone to CT
[2023-11-24] MEDS: IOPAMIDOL-370 (76%);100ML BOTTLE 100 ML IV (11:31)
[2023-11-24] MEDS: SODIUM CHLORIDE 0.9% 10ML SYR (RAD ONLY) 10 ML IV (11:31)
[2023-11-24] MEDS: 0.9 % SODIUM CHLORIDE 50 ML VIAL 40 ML IV (11:31)
[2023-11-24 11:32] LABS: Coronavirus 19, PCR Not Detected (NotDetected); Influenza A, PCR Not Detected (NotDetected); Influenza B, PCR Not Detected (NotDetected)
[2023-11-24 11:44] LABS: Hemoglobin 18.3 g/dL (14.1-18.0)
--- NOTE | 2023-11-24 12:15 | PC.NURSE ---
pt taken something to drink, no new complaints at this time.
--- NOTE | 2023-11-24 13:01 | PC.NURSE ---
pt visiting with .
--- NOTE | 2023-11-24 13:35 | PC.NURSE ---
pt disconnected and taken to the bathroom.
--- NOTE | 2023-11-24 14:00 | PC.NURSE ---
REPEAT TROP SENT TO LAB, PT UPDATED. CALL LIGHT WITHIN REACH
[2023-11-24 14:29] LABS: Troponin I < 0.01 ng/ml (0.00-0.034)
--- NOTE | 2023-11-24 14:37 | PC.NURSE ---
I rounded on pt, he no new requests at this time. was in the room as well.
--- NOTE | 2023-11-24 14:42 | PC.NURSE ---
DR NORMAN AT BEDSIDE TO UPDATE PT
== END 2023-11-24 15:10 | disposition home or self-care (01) ==
PROVIDERS: Emergency Provider Emergency Medicine; PCP Internal Medicine Cardiovascular Disease
DX: R07.9 Chest pain, unspecified (principal); K21.9 Gastro-esophageal reflux disease without esophagitis; I10 Essential (primary) hypertension; E78.5 Hyperlipidemia, unspecified; I20.9 Angina pectoris, unspecified
CPT/HCPCS: 71045; 71275; 80053; 83880; 84484; 85025; 87636; 93005; 96361; 96374; 96375; 99285; J2405; Q9967

== ENCOUNTER 2023-11-28 13:55 | Outpatient (CLI) | payer BC, SELFPAY ==
[2023-11-28 15:13] LABS: Alanine Aminotransferase 37 U/L (12-78); Albumin Level 4.5 g/dl (3.5-5.0); Alkaline Phosphatase 92 U/L (38-126); Aspartate Amino Transferase 44 U/L (17-59); Bilirubin,Direct 0.1 mg/dl (0.0-0.4); Bilirubin,Indirect 0.8 mg/dL (0.0-0.9); Bilirubin,Total 0.9 mg/dl (0.2-1.3); Bilirubin,Unconjugated 0.8 mg/dL (0.0-1.1); Chol/HDL Ratio 9.1 (1-3.5); Cholesterol 299 mg/dl (140-200); HDL Cholesterol 33 mg/dl (40-60); Total Protein,Serum 7.1 g/dl (6.3-8.2)
[2023-11-28 15:20] LABS: Triglycerides 805 mg/dl (30-150)
[2023-11-28 15:24] LABS: Direct LDL Cholesterol 135.49 mg/dL (100-129)
== END 2023-11-28 23:59 ==
LOC: LAB 13:55
PROVIDERS: Visit Provider Physician Assistant
DX: E78.2 Mixed hyperlipidemia (principal); I10 Essential (primary) hypertension; R07.9 Chest pain, unspecified; K21.9 Gastro-esophageal reflux disease without esophagitis
CPT/HCPCS: 36415; 80061; 80076